=== PATIENT | female | born 1990 | race Asian ===

== ENCOUNTER 2017-10-25 11:34 | Inpatient (IN) | payer OTHER ==
[~2017-10-25] VITALS: Ht 160 cm; Wt 58.8 kg
[2017-10-25] MEDS ORDERED: LACTATED RINGERS 1,000 ML IV SCH (12:15)
[2017-10-25 12:33] VITALS: BP 122/85
[2017-10-25 12:59] LABS: HCG UR SG 1.014 (1.003-1.030)
[2017-10-25] MEDS ORDERED: LIDOCAINE 1%, 50ML ONE (13:08)
[2017-10-25] MEDS ORDERED: EPINEPHRINE 1 MG/ML, 1ML ONE (13:08)
[2017-10-25] MEDS ORDERED: MIDAZOLAM 1 MG/ML, 2ML ONE (13:21)
[2017-10-25] MEDS ORDERED: FENTANYL PF 250 MCG/5ML ONE ×2 (13:22→14:35)
[2017-10-25] MEDS ORDERED: PROPOFOL 10 MG/ML, 20ML ONE ×3 (13:23→13:24)
[2017-10-25] MEDS ORDERED: SUCCINYLCHOLINE 20 MG/ML, 10ML ONE (13:24)
[2017-10-25] MEDS ORDERED: ROCURONIUM 10MG/ML,5ML ONE (13:24)
[2017-10-25] MEDS ORDERED: SODIUM CHLORIDE 0.9% PF 10ML ONE (13:25)
[2017-10-25] MEDS ORDERED: CEFAZOLIN 1,000 MG ONE ×2 (13:25)
[2017-10-25] MEDS ORDERED: ONDANSETRON 2MG/ML, 2ML ONE (13:26)
[2017-10-25] MEDS ORDERED: DEXAMETHASONE 4 MG/ML, 1ML ONE ×2 (13:26)
[2017-10-25] MEDS ORDERED: PROMETHAZINE 25 MG/ML, 1ML IV PRN (14:00)
[2017-10-25] MEDS ORDERED: morphine SULFATE 10 MG/ML, 1ML IV PRN (14:00)
[2017-10-25] MEDS ORDERED: PROMETHAZINE 12.5 MG SUPP PR PRN (14:00)
[2017-10-25] MEDS ORDERED: LABETALOL 5MG/ML, 20ML IV PRN (14:00)
[2017-10-25] MEDS ORDERED: HYDROmorphone 1 MG/ML, 1ML IV PRN (14:00)
[2017-10-25] MEDS ORDERED: MEPERIDINE/PF 25MG/0.5ML IVPush PRN (14:00)
[2017-10-25] MEDS ORDERED: ONDANSETRON 2MG/ML, 2ML IVPush PRN (14:00)
[2017-10-25] MEDS ORDERED: ACETAMINOPHEN 325 MG TABLET PO PRN ×2 (14:00→19:00)
[2017-10-25] MEDS ORDERED: hydrALAzine 20 MG/ML, 1ML IV PRN (14:00)
[2017-10-25] MEDS ORDERED: FENTANYL PF 100 MCG/2ML ONE ×2 (16:16→17:41)
[2017-10-25] MEDS ORDERED: OXYcodone 5 MG/5 ML ORAL.SOL UDC ONE ×2 (17:17→17:57)
[2017-10-25] MEDS ORDERED: ACETAMINOPHEN 650 MG/20.3 ML UDC ONE (17:17)
[2017-10-25] MEDS: FENTANYL PF 100 MCG/2ML IV PRN ×3 (17:42→17:56)
[2017-10-25] MEDS ORDERED: MORPHINE SULFATE 4 MG/ML, 1ML IV PRN (19:00)
[2017-10-25] MEDS ORDERED: ACETAMINOPHEN 650 MG SUPP PR PRN (19:00)
[2017-10-25] MEDS ORDERED: ONDANSETRON 2MG/ML, 2ML IV PRN (19:00)
[2017-10-25 19:40] VITALS: BP 112/66
[2017-10-25] MEDS: SODIUM CHLORIDE FLUSH 10ML SYR IVF SCH (21:00)
[2017-10-25] MEDS: OXYcodone 5 MG/5 ML ORAL.SOL UDC PO PRN (21:21)
[2017-10-25] MEDS: LACTATED RINGERS 1,000 ML IV SCH (21:25)
[2017-10-26 00:05] VITALS: BP 104/69
[2017-10-26 04:31] VITALS: BP 109/69
[2017-10-26] MEDS: LACTATED RINGERS 1,000 ML IV SCH ×2 (07:30→20:02)
[2017-10-26 07:45] VITALS: BP 99/61
[2017-10-26] MEDS: SODIUM CHLORIDE FLUSH 10ML SYR IVF SCH ×2 (09:00→20:02)
[2017-10-26] MEDS: OXYcodone 5 MG/5 ML ORAL.SOL UDC PO PRN (12:56)
[2017-10-26 13:28] VITALS: BP 105/62
[2017-10-26 20:10] VITALS: BP 112/68
[2017-10-27] MEDS ORDERED: LEVO125T5 PO (01:30)
[2017-10-27] MEDS ORDERED: ACETAMINOPHEN 500 MG TABLET PO PRN (01:30)
[2017-10-27 02:46] VITALS: BP 107/69
[2017-10-27] MEDS ORDERED: LEVOTHYROXINE 125 MCG TABLET PO SCH (06:00)
[2017-10-27] MEDS: LACTATED RINGERS 1,000 ML IV SCH (07:44)
[2017-10-27 08:20] VITALS: BP 111/72
[2017-10-27] MEDS: SODIUM CHLORIDE FLUSH 10ML SYR IVF SCH (09:00)
== END 2017-10-27 13:10 | disposition home or self-care (01) | DRG 627 ==
LOC: OUT 11:34 → 4NOR 18:34 → OUT 18:35 → 4NOR 18:35 → DCLOUNGE 10-27 13:00
PROVIDERS: ADMIT Specialist; ATTEND Specialist
PROC: 4A1134G Monitoring of Peripheral Nervous Electrical Activity, Intraoperative, Percutaneous Approach (ICD-10-PCS; 2017-10-25)
PROC: 0GTK0ZZ Resection of Thyroid Gland, Open Approach (ICD-10-PCS; principal; 2017-10-25 13:30)
DX: C73 Malignant neoplasm of thyroid gland (principal)
CPT/HCPCS: 36415; 81025; 82310; 86800; 88305; 88307; 88331; 88333; J0171; J0690; J1100; J2250; J2405; J2704; J3010; J3490; J0330; J7120

== ENCOUNTER 2018-08-27 12:28 | Emergency (ER) | payer OTHER ==
[~2018-08-27] VITALS: Ht 160 cm; Wt 54.4 kg
[~2018-08-27 12:28] MED LIST: LEVO125T5 PO
--- NOTE | 2018-08-27 14:00 | NUR ---
Pt from lobby to 15
--- NOTE | 2018-08-27 14:27 | NUR ---
2 days pelvic cramping. No bleeding or discharge. Denies dysuria, pt attributes pain to IUD placed 2 months ago. LMP 08/18/18
[2018-08-27 14:28] LABS: BASOPHILS # (AUTO) 0.02 x10^3/uL (0-0.1); BASOPHILS % (AUTO) 0 % (0-1); EOSINOPHILS # (AUTO) 0.14 x10^3/uL (0-0.4); EOSINOPHILS % (AUTO) 2 % (1-7); LYMPHOCYTES % (AUTO) 14 % (22-44); MD NO; MEAN CORPUSCULAR HEMOGLOBIN 29.7 pg (27.0-34.8); MEAN CORPUSCULAR HGB CONC 33.9 g/dL (32.4-35.8); MEAN CORPUSCULAR VOLUME 87.5 fL (80-100); MEAN PLATELET VOLUME 7.9 fL (7.4-10.4); MONOCYTES % (AUTO) 4 % (2-9); NEUTROPHILS % (AUTO) 81 % (42-75); PLATELET COUNT 227 x10^3/uL (130-400); RED BLOOD COUNT 4.91 x10^6/uL (3.82-5.3); RED CELL DISTRIBUTION WIDTH 13.5 % (9.6-15.2)
[2018-08-27 14:33] LABS: ALANINE AMINOTRANSFERASE 16 U/L (12-78); ALBUMIN 3.9 g/dL (3.4-5.0); ANION GAP 3 mmol/L (5-15); CALCIUM 8.5 mg/dL (8.5-10.1); CHLORIDE 108 mmol/L (98-107); CREATININE 0.88 mg/dL (0.55-1.02)
[2018-08-27 14:38] LABS: ALKALINE PHOSPHATASE 52 U/L (45-117); BILIRUBIN,TOTAL 0.3 mg/dL (0.2-1.0); TOTAL PROTEIN 7.8 g/dL (6.4-8.2)
--- NOTE | 2018-08-27 14:39 | NUR ---
Urine collected & sent, labs drawn, pt aware of POC. Call light within reach.
[2018-08-27 14:46] LABS: MICROSCOPIC NOT IND
[2018-08-27 14:51] LABS: CULTURE INDICATED? NO
--- NOTE | 2018-08-27 14:52 | NUR ---
PT REPORT FROM LARRY JONAS. PT CARE ASSUMED
[2018-08-27] MEDS ORDERED: LEVO25TA4 PO (15:07)
[2018-08-27 15:09] VITALS: BP 101/56
== END 2018-08-27 16:03 | disposition home or self-care (01) ==
LOC: ED 15:32
DX: R10.30 Lower abdominal pain, unspecified (principal)
CPT/HCPCS: 36415; 80053; 81003; 84703; 85025; 99283